=== PATIENT | female | born 1995 | race Native Hawaiian/Other Pacific Islander ===

== ENCOUNTER 2016-10-05 21:24 | Emergency (ER) | payer BC ==
[~2016-10-05] VITALS: Ht 157.5 cm; Wt 59.3 kg
[2016-10-05 21:27] VITALS: TEMP 37.3; Ht 157.5 cm; Wt 59.3 kg
[2016-10-05] MEDS ORDERED: SODIUM CHLORIDE 0.9% 1000ML 1,000 ML IV STA (22:10)
--- NOTE | 2016-10-05 22:18 | EMERGENCY ROOM VISIT NOTE ---
History Report prepared by Steve: Daniel Fuentes Under the Supervision of: Dr. Tariq Serrato D.O. First contact with patient: 22:02 Chief Complaint: DIARRHEA Stated Complaint: BLOOD IN STOOL, DIARRHEA, ABD PAIN, INDEJESTION Nursing Triage Summary: Pt reports diarrhea since Sunday, recent travel out of country. Also reports severe jet lag, fatigue, and insomnia "which is normal for me." Pt reports associated nausea with diarrhea. Reports approx 5 episodes of diarrhea today. History of Present Illness The patient is a 21 year old female who presents to the Emergency Room with complaints of worsening abdominal pain and diarrhea that began this past Sunday , three days prior to arrival. Her symptoms onset on Sunday with a stomach ache , and her first bout of diarrhea was on Sunday. Yesterday her abdominal pain and diarrhea worsened significantly. She did take Imodium yesterday, which relieved her diarrhea symptoms but did not improve her abdominal pain at all. The patient took a trip to [facility] for spring (7 days prior to arrival), and began to experience her symptoms shortly after returning home. She notes that she felt completely fine while she was in [facility]. She did not drink the local water, but did note adding ice to her drinks. The patient received a Typhoid shot, and all other recommended vaccinations before leaving on her trip. She had no personal animal contact, and did not have many mosquito bites while there. The patient also made note of an episode yesterday when she broke out in hives and had an asthma attack. These symptoms were relieved with her inhaler and Benadryl. Source of History: patient Onset: 3 days prior to arrival Position: other (Gastrointestinal ) Quality: other (Diarrhea) Timing: worsening Associated Symptoms: + abdominal pain Review of Systems See HPI for pertinent positives and negatives. A total of ten systems were reviewed and were otherwise negative. Past Medical & Surgical Patient notes no past medical/surgical history Family History Diabetes mellitus Heart disease Social History Smoking Status: Never Smoker Marital Status: single Housing Status: lives with roommate Occupation Status: [employer] student Current/Historical Medications Scheduled Control Pills ( Control Pills), 1 TAB PO DAILY Allergies Coded Allergies: No Known Allergies (Unverified , 10/05/16) Physical Exam Vital Signs Date Time Temp Pulse Resp B/P Pulse Ox O2 Delivery O2 Flow Rate FiO2 10/05/16 22:48 94 10/05/16 22:30 94 16 134/88 100 Room Air 10/05/16 21:27 37.3 122 18 137/89 97 Room Air Physical Exam GENERAL: Awake, alert, well-appearing, in no distress HENT: Normocephalic, atraumatic. Oropharynx unremarkable. EYES: Normal conjunctiva. Sclera non-icteric. NECK: Supple. No nuchal rigidity. FROM. No JVD. RESPIRATORY: Clear to auscultation. CARDIAC: Regular rate, normal rhythm. Extremities warm and well perfused. Pulses equal. ABDOMEN: Soft, non-distended. No tenderness to palpation. No rebound or guarding. No masses. RECTAL: Deferred. MUSCULOSKELETAL: Chest examination reveals no tenderness. The back is symmetrical on inspection without obvious abnormality. There is no CVA tenderness to palpation. No joint edema. LOWER EXTREMITIES: Calves are equal size bilaterally and non-tender. No edema. No discoloration. NEURO: Normal sensorium. No sensory or motor deficits noted. SKIN: No rash or jaundice noted. Medical Decision & Procedures Laboratory Results 10/05/16 22:25 Red Blood Count 4.70, Mean Corpuscular Volume 86.4, Mean Corpuscular Hemoglobin 30.6, Mean Corpuscular Hemoglobin Concent 35.5, Mean Platelet Volume 8.9, Neutrophils (%) (Auto) 59.7, Lymphocytes (%) (Auto) 23.4, Monocytes (%) (Auto) 13.8, Eosinophils (%) (Auto) 2.3, Basophils (%) (Auto) 0.7, Neutrophils # (Auto ) 5.08, Lymphocytes # (Auto) 2.00, Monocytes # (Auto) 1.18, Eosinophils # (Auto ) 0.20, Basophils # (Auto) 0.06 10/05/16 22:25 Test 10/05/16 22:25 White Blood Count 8.53 K/uL (4.8-10.8) Red Blood Count 4.70 M/uL (4.2-5.4) Hemoglobin 14.4 g/dL (12.0-16.0) Hematocrit 40.6 % (37-47) Mean Corpuscular Volume 86.4 fL (80-100) Mean Corpuscular Hemoglobin 30.6 pg (25-34) Mean Corpuscular Hemoglobin Concent 35.5 g/dl (32-36) Platelet Count 263 K/uL (130-400) Mean Platelet Volume 8.9 fL (7.4-10.4) Neutrophils (%) (Auto) 59.7 % Lymphocytes (%) (Auto) 23.4 % Monocytes (%) (Auto) 13.8 % Eosinophils (%) (Auto) 2.3 % Basophils (%) (Auto) 0.7 % Neutrophils # (Auto) 5.08 K/uL (1.4-6.5) Lymphocytes # (Auto) 2.00 K/uL (1.2-3.4) Monocytes # (Auto) 1.18 K/uL (0.11-0.59) Eosinophils # (Auto) 0.20 K/uL (0-0.5) Basophils # (Auto) 0.06 K/uL (0-0.2) RDW Standard Deviation 38.2 fL (36.4-46.3) RDW Coefficient of Variation 12.0 % (11.5-14.5) Immature Granulocyte % (Auto) 0.1 % Immature Granulocyte # (Auto) 0.01 K/uL (0.00-0.02) Urine Color YELLOW Urine Appearance CLEAR (CLEAR) Urine pH 7.0 (4.5-7.5) Urine Specific [place] 1.003 (1.000-1.030) Urine Protein NEG (NEG) Urine Glucose (UA) NEG (NEG) Urine Ketones NEG (NEG) Urine Occult Blood NEG (NEG) Urine Nitrite NEG (NEG) Urine Bilirubin NEG (NEG) Urine Urobilinogen NEG (NEG) Urine Leukocyte Esterase NEG (NEG) Urine Test NEG (NEG) Anion Gap 9.0 mmol/L (3-11) Est Creatinine Clear Calc Drug Dose 134.0 ml/min Estimated GFR () > 150.0 Estimated GFR (Non- 136.7 BUN/Creatinine Ratio 11.5 (10-20) Calcium Level 9.0 mg/dl (8.5-10.1) Total Bilirubin 0.2 mg/dl (0.2-1) Direct Bilirubin < 0.1 mg/dl (0-0.2) Aspartate Amino Transf (AST/SGOT) 16 U/L (15-37) Alanine Aminotransferase (ALT/SGPT) 22 U/L (12-78) Alkaline Phosphatase 70 U/L (45-117) Total Protein 7.7 gm/dl (6.4-8.2) Albumin 3.8 gm/dl (3.4-5.0) Lipase 123 U/L (73-393) Laboratory results reviewed by me Medications Administered Medications (Trade) Dose Ordered Sig/Nicko Route Start Time Stop Time Status Last Admin Dose Admin Sodium Chloride (Nss 1000ml) 1,000 ml @ 999 mls/hr Q1H1M STAT IV 10/05/16 22:10 10/05/16 23:10 DC 10/05/16 22:33 999 MLS/HR ED Course 2204: The patient was evaluated in room B3. A complete history and physical exam was performed. 2210: Ordered Sodium Chloride 1000 mL @ 999 mL/hr IV. 2303: I reevaluated the patient at this time. She was feeling better. 2321: I reevaluated the patient. Discussed results and discharge instructions: she verbalized understanding and agreement. The patient is ready for discharge. Medical Decision Differential Diagnosis include: Gastritis, gastroenteritis, colitis, traveler's diarrhea, dehydration, and metabolic derangement. Repeat exam at 2350 patient resting no distress patient's lab work appears normal, I suspect that this is a gastroenteritis or travelers diarrhea. Do not think that it is a bacterial infection at this time. Patient appears nontoxic. I discussed the workup the patient at bedside Impression Primary Impression: Diarrhea Scribe Attestation The scribe's documentation has been prepared under my direction and personally reviewed by me in its entirety. I confirm that the note above accurately reflects all work, treatment, procedures, and medical decision making performed by me. Departure Information Dispostion Home / Self-Care Prescriptions Dicyclomine Hcl (BENTYL) 10 Mg Cap 1 CAP PO TID for 10 Days, #30 CAP 3 Refills Prov: Tariq Serrato, DO 10/05/16 Referrals No Doctor, Assigned (PCP) Patient Instructions ED Diarrhea Traveler, [facility] Additional Instructions Follow-up with her primary care physician one to 2 days. Return for worsening diarrhea abdominal pain fever or any concerns Problem Qualifiers Primary Impression: Diarrhea Diarrhea type: unspecified type Qualified Codes: R19.7 - Diarrhea, unspecified
[2016-10-05 22:36] LABS: BASO % 0.7 %; BASO ABS # 0.06 K/uL (0-0.2); COMPLETE YES; EOS % 2.3 %; HEMATOCRIT 40.6 % (37-47); IG% 0.1 %; LYMPH % 23.4 %; MEAN CELL VOLUME 86.4 fL (80-100); MEAN CORPUSCULAR HEMOGLOBIN 30.6 pg (25-34); MEAN CORPUSCULAR HGB CONC 35.5 g/dl (32-36); MEAN PLATELET VOLUME 8.9 fL (7.4-10.4); MONO % 13.8 %; NEUT % 59.7 %; PLATELET COUNT 263 K/uL (130-400); WHITE BLOOD COUNT 8.53 K/uL (4.8-10.8)
[2016-10-05] MEDS ORDERED: BCPILLS PO (22:36)
[2016-10-05 22:48] LABS: URINE APPEARANCE CLEAR (CLEAR); URINE BILIRUBIN NEG (NEG); URINE COLOR YELLOW; URINE NITRITE NEG (NEG); URINE SPECIFIC GRAVITY 1.003 (1.000-1.030); UROBILINOGEN NEG (NEG); ZZUR CULT IF INDIC CLEAN CATCH NO
[2016-10-05 22:51] LABS: MANUAL MICROSCOPIC REQUIRED? NO; REVIEW REQ? NO
[2016-10-05 23:00] LABS: ALT/SGPT 22 U/L (12-78); BLOOD UREA NITROGEN 6 mg/dl (7-18); BUN/CREATININE RATIO 11.5 (10-20); CARBON DIOXIDE 23 mmol/L (21-32); CHLORIDE 106 mmol/L (98-107); CREATININE 0.53 mg/dl (0.60-1.20); GLUCOSE 94 mg/dl (70-99); POTASSIUM 3.6 mmol/L (3.5-5.1); SODIUM 138 mmol/L (136-145)
[2016-10-05 23:02] LABS: ALKALINE PHOSPHATASE 70 U/L (45-117); AST/SGOT 16 U/L (15-37)
[2016-10-05] MEDS ORDERED: DICY10CA55 PO (23:25)
[2016-10-05 23:37] VITALS: BP 114/73; PULSE 82; O2SAT 97
--- NOTE | 2016-10-31 16:49 | Pharmacy Progress Note ---
ED Pharmacist Progress Note Date of Service: Oct 31, 2016. Received call from outpatient pharmacy on 10/31 regarding a Flovent prescription written on 10/05. Strength and SIG not noted on prescription - outpatient pharmacist requested clarification. Could not find documentation that a Flovent prescription was written, although physician note does indicate that patient experienced a recent asthma attack. Patient was instructed to follow-up with PCP within 1-2 days of ED visit. Since the prescription was written almost one month ago and accompanying documentation was insufficient for clarification, I noted that the prescription could not be filled. Noted that patient could return to ED if concerned, but suggested that follow-up with PCP would likely be a better alternative.
== END 2016-10-05 23:44 | disposition home or self-care (01) ==
LOC: C.EDB 21:26
DX: R19.7 Diarrhea, unspecified (principal); Z83.3 Family history of diabetes mellitus; Z79.3 Long term (current) use of hormonal contraceptives

== ENCOUNTER → 2017-09-05 | Outpatient (CLI) | payer BC ==
[~2017-09-05] MED LIST: BCPILLS PO; DICY10CA55 PO; GADAVIST IV PRN
--- NOTE | 2017-09-05 21:12 | DIAGNOSTIC IMAGING REPORT ---
BRAIN COMBO FOR IAC CLINICAL HISTORY: R42 VertigoPATIENT HAS A HISTORY OF SIGNIFICANT VERTIGO WITH ABN TECHNIQUE: Multiaxial MRI acquisition COMPARISON STUDY: None FINDINGS: Diffusion-weighted images show no acute ischemic event. Signal characteristics the cerebellar as well as cerebral hemispheres are unremarkable. Ventricular system is midline. Internal auditory canals are unremarkable. There is no abnormal postcontrast enhancement. Sella and parasellar regions are unremarkable. IMPRESSION: Normal study. Normal internal auditory canals. The above report was generated using voice recognition software. It may contain grammatical, syntax or spelling errors. Electronically signed by: Jay Major M.D. 09/05/2017 9:11 PM Dictated Date/Time: 09/05/2017 9:07 PM
== END | disposition home or self-care (01) ==
LOC: C.MRI 19:21
PROVIDERS: ATTEND Physician Assistant
DX: R42 Dizziness and giddiness (principal)